=== PATIENT | male | born 1985 | race African-American/Black ===

== ENCOUNTER 2021-02-17 04:27 | Day surgery (SDC) | payer OTHER ==
[2021-02-15 16:21] VITALS: BMI 24.3
[2021-02-17] MEDS ORDERED: BUPIVACAINE HCL/PF 0.5% (5MG/ML) 10 ML VIAL ONE (07:28)
[2021-02-17] MEDS ORDERED: LIDOCAINE 1%/EPI 1:100000 (20 ML MULTI DOSE VIAL) ONE (07:28)
[2021-02-17] MEDS ORDERED: ONDANSETRON 4 MG/2 ML VIAL IVPUSH PRN (08:14)
[2021-02-17] MEDS ORDERED: PROMETHAZINE HCL 25 MG/1 ML VIAL IVPUSH PRN (08:14)
[2021-02-17] MEDS ORDERED: oxyCODONE HCL 5 MG TABLET PO PRN (08:14)
[2021-02-17] MEDS ORDERED: LACTATED RINGERS SOLUTION 1,000 ML IV SCH (08:15)
[2021-02-17] MEDS ORDERED: ceFAZolin 2 GRAM PREMIX BAG IVPB ONE (09:08)
[2021-02-17] MEDS ORDERED: METHYLENE BLUE 1% 10 MG/1 ML VIAL NR ONE (09:26)
[2021-02-17 13:18] VITALS: BP 104/51; PULSE 60; TEMP 98.6
== END 2021-02-17 14:40 | disposition home or self-care (01) ==
LOC: JASU-SURG 04:27
PROVIDERS: ATTEND Surgery
PROC: 0JB90ZZ Excision of Buttock Subcutaneous Tissue and Fascia, Open Approach (ICD-10-PCS; principal; 2021-02-17 10:00)
DX: L05.91 Pilonidal cyst without abscess (principal)
CPT/HCPCS: 88304-TC; 94760; Q9968

== ENCOUNTER 2021-02-18 18:39 | Emergency (ER) | payer OTHER ==
[2021-02-18 18:47] VITALS: BP 115/84; PULSE 91; TEMP 98.1; BMI 24.3
== END 2021-02-18 20:09 | disposition home or self-care (01) ==
LOC: JERFT 18:39 → JER 18:39 → JERFT 20:09
DX: L05.91 Pilonidal cyst without abscess (principal)
CPT/HCPCS: 99283-25